=== PATIENT | female | born 1960 | race Native Hawaiian/Other Pacific Islander ===

== ENCOUNTER 2017-12-20 11:35 | Emergency (ER) | payer OTHER ==
[~2017-12-20] VITALS: Ht 152.4 cm; Wt 122.5 kg
[2017-12-20] MEDS ORDERED: NEURONTIN800 MG PO (11:46)
[2017-12-20] MEDS ORDERED: PHENTERMINE37.5 MG OR (11:47)
[2017-12-20] MEDS ORDERED: AMIT25TA22 PO (11:47)
[2017-12-20] MEDS ORDERED: XANAX XR1 MG OR (11:49)
[2017-12-20] MEDS ORDERED: PERCOCET1 TA3 PO (11:50)
[2017-12-20 12:39] LABS: PLATELET COUNT 315 K/uL (152-353)
[2017-12-20 12:43] LABS: POTASSIUM 3.8 mmol/L (3.6-5.2)
== END 2017-12-20 16:45 | disposition home or self-care (01) ==
LOC: ED 11:35
DX: R41.82 Altered mental status, unspecified (principal); T50.901A Poisoning by unspecified drugs, medicaments and biological substances, accidental (unintentional), initial encounter; Y92.89 Other specified places as the place of occurrence of the external cause
CPT/HCPCS: 80053; 80307; 81000; 85027; 87088; 99284